=== PATIENT | male | born 1990 | race Two or more races ===

== ENCOUNTER 2020-06-19 09:37 | Outpatient (REF) | payer MEDICAID, SELFPAY | END 2020-06-19 09:38 | disposition home or self-care (01) | LOC: HO.LAB 09:37 | PROVIDERS: Visit Provider Internal Medicine | DX: Z20.828 Contact with and (suspected) exposure to other viral communicable diseases (principal) | CPT/HCPCS: 36415; 87635 ==

== ENCOUNTER 2021-04-07 00:36 | Emergency (ER) | payer MEDICAID, SELFPAY ==
--- NOTE | ~2021-04-07 | XR_ITS ---
EXAMINATION: XR ABDOMEN KUB CLINICAL INDICATION: Abdominal discomfort, questionable constipation COMPARISON: 01/27/2014 TECHNIQUE: AP view of the abdomen. FINDINGS: The bowel gas pattern is nonobstructive. Mild volume of stool is noted. No gross evidence of free air on supine imaging. No suspicious calcifications are seen. Included lung bases are well aerated. No acute osseous findings are seen. XR/XR KUB IMPRESSION: Nonobstructive bowel gas pattern. Mild volume of stool.
[2021-04-07 00:40] VITALS: BP 164/98; PULSE 105; RESP 18; TEMP 36.8; O2SAT 98; BMI 27.8
--- NOTE | 2021-04-07 01:20 | ED_ITS ---
HPI - Abdominal Pain General Chief Complaint: Abdominal Pain Stated Complaint: Abd pain Time Seen by Provider: 04/07/21 00:55 Source: patient Mode of arrival: ambulatory History of Present Illness HPI narrative: 31-year-old male without significant past medical history presents with concerns for abdominal wall pain that he has had approximately 2 weeks without associated fever, chills, nausea, vomiting, diarrhea, urinary pain/burning/frequency. Patient does describe intermittent constipation, but denies that he is currently constipated. In addition, he describes some ?little lumps? that he feels in the soft tissue area of his left abdomen. Related Data Allergies Allergy/AdvReac Type Severity Reaction Status Date / Time No Known Allergies Allergy Unverified 06/05/20 17:51 Review of Systems Review of Systems Pertinent positives and negatives as stated in HPI 10 point review of systems is otherwise negative. Physical Exam Vital Signs: Vital Signs: Last Vital Signs Temp 98.2 F 04/07/21 00:40 Pulse 105 H 04/07/21 00:40 Resp 18 04/07/21 00:40 BP 164/98 H 04/07/21 00:40 Pulse Ox 98 04/07/21 00:40 Body Mass Index 27.8 VITAL SIGNS: Reviewed. GENERAL: Well developed, well nourished, patient is in no acute distress HEAD: Normocephalic/atraumatic EYES: PERRLA, EOMI OROPHARYNX: no oral lesions noted, posterior pharynx clear LUNGS: Normal breath sounds. SpO2<98> CARDIOVASCULAR: Regular rate and rhythm without noted murmurs ABDOMEN: Soft, non-tender, non-distended with bowel sounds, no CVA tenderness, on palpation of the subcutaneous tissue in the left abdomen there are very small lumps palpated consistent with possible lipoma but no evidence of hernia SKIN: Inspection of the skin reveals no rashes, ulcerations, jaundice, pallor, or petechiae. NEUROLOGIC: Alert and oriented x 4. Strength and sensation to light touch were grossly intact x 4. Course Course Course Narrative: 31-year-old male with history and clinical presentation consistent with likely gas or constipation. The small lumps palpated within the subcutaneous tissue is likely lipomas. Review of all investigations negative for acute findings. There remains low clinical suspicion for any intra-abdominal abnormalities and patient was discharged home in stable condition with instructions to follow-up with his primary care provider. MDM - Abdominal Pain Lab Data Labs: Lab Results 04/07/21 Range/Units 01:28 Urine Color YELLOW Urine Appearance CLEAR Urine pH 6.0 (5.0-8.0) Ur Specific [place] 1.025 (1.005-1.025) Urine Protein NEG (NEG-TRACE) MG/DL Urine Glucose (UA) NEG (NEG) MG/DL Urine Ketones NEG (NEG) MG/DL Urine Blood TRACE (NEG) Urine Nitrite NEG (NEG) Ur Leukocyte Esterase NEG (NEG) Urine RBC 0-2 (0) /HPF Urine WBC 0-2 (0-4) /HPF Ur Squamous Epith Cells NONE /LPF Urine Bacteria NONE /LPF Urine Mucus TRACE /LPF Discharge Plan Discharge Clinical Impression: Abdominal discomfort Patient Disposition: Home, Self-Care Instructions: Constipation (ED) Additional Instructions: 1. Recommend [id number] Tylenol/ibuprofen as needed for pain control. 2. Recommend vnmc-sno-[id number] medication for constipation as needed. 3. Please follow-up with your primary care provider next 2-3 days for re- evaluation of your symptoms. Return to the ER for acute worsening of symptoms. Referrals: Physician,None [Primary Care Provider] - 2 days PMF Past Medical History Source: nursing notes reviewed Medical History No known health problems Social History Social History Advance Directives: No Advance Directives Information Provided: No
[2021-04-07 01:32] LABS: Glucose Urine UA NEG (NEG); Leukocyte Esterase Urine NEG (NEG); Nitrite Urine NEG (NEG); Specific Gravity - Urine 1.025 (1.005-1.025); Urine Blood TRACE (NEG); Urine Ketones NEG (NEG); Urine Protein NEG (NEG-TRACE)
[2021-04-07 01:33] LABS: Appearance Urine CLEAR; Color Urine YELLOW
[2021-04-07 01:40] LABS: Mucus Urine TRACE /LPF; RBC Urine 0-2 /HPF (0); WBC Urine 0-2 /HPF (0-4)
== END 2021-04-07 03:18 | disposition home or self-care (01) ==
PROVIDERS: Emergency Provider Student in an Organized Health Care Education/Training Program
DX: R10.9 Unspecified abdominal pain (principal)
CPT/HCPCS: 74018; 81001; 99283

== ENCOUNTER 2021-04-27 11:37 | Outpatient (REF) | payer MEDICAID, SELFPAY ==
--- NOTE | ~2021-04-27 | XR_ITS ---
EXAMINATION: XR LUMBOSACRAL SPINE CLINICAL INFORMATION: Back pain. COMPARISON: None TECHNIQUE: Three views of the lumbosacral spine. FINDINGS: Mild scoliosis convex right apex at L2. The SI joints are grossly patent. There is no listhesis or compression injury. The disc heights and vertebral heights are fairly well preserved. XR/XR lumbar spine 2-3V IMPRESSION: Minimal scoliosis. No listhesis or compression injury. No significant degeneration.
== END 2021-04-27 11:38 | disposition home or self-care (01) ==
LOC: HO.XRAY 11:37
PROVIDERS: PCP Registered Nurse Community Health; Visit Provider Registered Nurse Community Health
DX: M54.5 Low back pain (principal)
CPT/HCPCS: 72100

== ENCOUNTER 2022-04-07 00:49 | Emergency (ER) | payer MEDICAID, SELFPAY ==
[2022-04-07 00:54] VITALS: BP 114/94; PULSE 78; RESP 18; TEMP 36.2; O2SAT 98; BMI 27.1
== END 2022-04-07 02:15 | disposition left against medical advice (07) ==
PROVIDERS: Emergency Provider Emergency Medicine
DX: R11.10 Vomiting, unspecified (principal)
CPT/HCPCS: 99281

== ENCOUNTER 2024-05-29 14:36 | Outpatient (REF) | payer MEDICAID, SELFPAY ==
--- NOTE | ~2024-05-29 | XR_ITS ---
EXAMINATION: XR THORACIC SPINE CLINICAL INFORMATION: pt w chronic lower back and lower thoracic pain over spinal points COMPARISON: None available. TECHNIQUE: 2 views of the thoracic spine were obtained. FINDINGS: There is no fracture or bone destruction seen and the vertebral alignment is normal. There is no disc space narrowing. There is no abnormality of the paraspinal soft tissues. XR/XR thoracic spine 2V IMPRESSION: Unremarkable examination. Electronically signed by: Mynor Helm MD 05/29/2024 07:56 PM EDT RP
--- NOTE | ~2024-05-29 | XR_ITS ---
EXAMINATION: XR LUMBOSACRAL SPINE CLINICAL INFORMATION: pt w chronic lower back and lower thoracic pain over spinal points COMPARISON: Lumbar spine April 27, 2021 TECHNIQUE: Three views of the lumbosacral spine. FINDINGS: The vertebral bodies and posterior elements are normal. The disc spaces are preserved and the vertebral alignment is normal. The paraspinal soft tissues are normal. XR/XR lumbar spine 2-3V IMPRESSION: Unremarkable examination. Electronically signed by: Mynor Helm MD 05/29/2024 07:57 PM EDT RP
--- NOTE | ~2024-05-29 | XR_ITS ---
EXAMINATION: XR PELVIS CLINICAL INFORMATION: CHRONIC LOW BACK PAINOVER SPINAL POINTS,PAIN IN HIS LEFT PELVIC BONE IN ILLIACUS CREST. COMPARISON: None available. TECHNIQUE: AP view of the pelvis. FINDINGS: No fracture. Hip joint spaces are maintained. Alignment is anatomic. Sacroiliac joints and pubic symphysis are normal. No abnormal soft tissue calcifications. XR/XR pelvis 1-2V IMPRESSION: Normal pelvis. Electronically signed by: Mynor Helm MD 05/29/2024 07:58 PM EDT
== END 2024-05-29 14:37 | disposition home or self-care (01) ==
LOC: HO.HHCX 14:36
PROVIDERS: Visit Provider Student in an Organized Health Care Education/Training Program
DX: M54.50 Low back pain, unspecified (principal); G89.29 Other chronic pain
CPT/HCPCS: 72070; 72100; 72170

== ENCOUNTER 2024-06-05 12:40 | Outpatient (REF) | payer MEDICAID, SELFPAY ==
--- NOTE | ~2024-06-05 | XR_ITS ---
EXAMINATION: XR PELVIS CLINICAL INFORMATION: Pelvic pain COMPARISON: X-ray of the pelvis May 200012/27 TECHNIQUE: AP view of the pelvis. FINDINGS: No fracture. Hip joint spaces are maintained. Alignment is anatomic. Sacroiliac joints and pubic symphysis are normal. No abnormal soft tissue calcifications. XR/XR pelvis 1-2V IMPRESSION: Normal pelvis. Electronically signed by: Valentín Joseph MD 06/28/2024 07:21 AM EDT
--- NOTE | ~2024-06-05 | US_ITS ---
EXAMINATION: US ABDOMEN LIMITED CLINICAL INFORMATION: Chronic superficial mass sensation over left lower quadrant in abdominal wall causing pain. COMPARISON: X-ray KUB 04/07/2021. TECHNIQUE: Real-time imaging of palpable left lateral abdominal wall lumps. FINDINGS: Corresponding with the palpable lumps described by the patient in the lateral left abdominal wall, there are 4 subcutaneous hyperechoic, round densities. These show respective dimensions of 1.4 x 0.9 x 1.2 cm, 1.1 x 0.8 x 1.1 cm, 0.6 x 0.6 x 0.8 cm and 0.6 x 0.6 x 0.8 cm. None shows significant associated color Doppler flow or change in though sound transmission. No fluid collection is seen. There is no lymphadenopathy. No foreign body is seen. US/US abdomen limited IMPRESSION: Corresponding with the palpable lumps described by the patient in the lateral left abdominal wall, there are 4 hyperechoic subcutaneous masses. The possibility of lipomas is raised; the exact etiologies are indeterminate. If of continued clinical concern, these can be further evaluated with MRI. Electronically signed by: Rodolfo Flood MD 06/07/2024 03:23 PM EDT
== END 2024-06-05 12:41 | disposition home or self-care (01) ==
LOC: HO.US 12:40
PROVIDERS: PCP Student in an Organized Health Care Education/Training Program; Visit Provider Student in an Organized Health Care Education/Training Program
DX: R10.2 Pelvic and perineal pain (principal); R22.2 Localized swelling, mass and lump, trunk; M54.50 Low back pain, unspecified; G89.29 Other chronic pain
CPT/HCPCS: 72170; 76705

== ENCOUNTER → 2024-12-17 08:41 | Outpatient (BNV) | payer MEDICAID, SELFPAY | PROVIDERS: Visit Provider Radiology Diagnostic Radiology | DX: D18.00 Hemangioma unspecified site (principal) | CPT/HCPCS: 74183 ==

== ENCOUNTER 2024-12-17 08:42 | Outpatient (REF) | payer MEDICAID, SELFPAY ==
--- NOTE | ~2024-12-17 | MR_ITS ---
EXAMINATION: MRI Abdomen without and with contrast HISTORY: painful subcutaneous masses located in left lateral portion of abdomen COMPARISON: Correlation is made with a limited abdominal ultrasound dated 06/05/2024. TECHNIQUE: Axial in and out of phase T1-weighted gradient echo, axial diffusion weighted, and axial and coronal HASTE T2 with fat saturation images were obtained through the abdomen. Subsequently, fat suppressed axial and coronal T1-weighted images were obtained after the intravenous administration of 10 mL Gadavist. FINDINGS: There is a 9 mm mildly T2 hyperintense nodule within the subcutaneous fat of the left anterior abdominal wall (series 7, image 50) seen on the fat-suppressed T2-weighted images. This is not seen on any other precontrast sequence, including the nonfat suppressed T2-weighted sequence. Additional tiny similar appearing nodules are noted in the right anterior abdominal wall (series 7, images 41 and 50). After the administration of intravenous gadolinium, there is faint enhancement. Findings are suggestive of foci of fat necrosis. There is no significant loss of signal intensity within the liver on opposed phase images to suggest steatosis. There is a 1.2 cm T2 hyperintense lesion in the right lobe and a smaller similar-appearing subcapsular lesion in the right lobe. These demonstrate peripheral, nodular enhancement and likely represent hemangiomas. There is no intra or extrahepatic biliary ductal dilatation. The hepatic and portal veins are patent. The gallbladder, spleen, pancreas, adrenals, and left kidney are unremarkable. There is a 1.2 cm cyst at the upper pole of the right kidney. No retroperitoneal lymphadenopathy or ascites is identified in the upper abdomen. The visualized bones demonstrate normal marrow signal intensity. MR/MR abdomen wo/w con IMPRESSION: 1. Tiny nodules in the subcutaneous fat of the anterior abdominal wall bilaterally as described, suggestive of foci of fat necrosis. These are amenable to ultrasound-guided biopsy if desired. 2. Small hepatic hemangiomas. Electronically signed by: Maury Smith MD 12/17/2024 10:43 AM EDT
[2024-12-17] MEDS: gadobutroL 10 ML VIAL IVPUSH (09:44)
== END 2024-12-17 08:43 | disposition home or self-care (01) ==
LOC: HO.MRI 08:42
PROVIDERS: Visit Provider Nurse Practitioner
DX: R22.9 Localized swelling, mass and lump, unspecified (principal)
CPT/HCPCS: 74183; A9585

== ENCOUNTER 2024-12-19 09:14 | Outpatient (REF) | payer MEDICAID, SELFPAY ==
--- OUTSIDE RECORDS SUMMARY | 2024-12-19 10:12 | XMS_ITS | Encounter Summary ---
Author Organization [employer] Address [address] [place] [address] Care Team Providers Care Mri Special Procedures Technologist Name Role Phone Nadeen Alexa VIRGEN Primary Care Provider [phone] Encounter Details Date Type Department Care Team ([facility] st Contact Info) Description 12/18/2024 9:00 AM EDT Nurse Only [facility] [address] [place] [address] Lamar Tripathi LPN Encounter for immunization (Primary Dx) Social History Tobacco Use Types Packs/Day Years Used Date Smoking Tobacco: Never Passive Smoke Exposure: Never Smokeless Tobacco: Never Alcohol Answer Date Recorded How often do you have a drink containing alcohol ? 0 12/03/2024 How many drinks containing a lcohol do you have on a typical day when you are drinking? 0 12/03/2024 How often do you have six or more drinks on one occasion? 0 12/03/2024 Depression Answer Date Recorded Patient Health Questionnaire-9 Score 0 12/03/2024 Patient Health Questionnaire-9 Score 0 12/03/2024 Last PHQ-9: Questionnaire Data Not on file 0 12/03/2024 Housing Stability Answer Date Recorded What is your housing situation today? I have travis langley 12/03/[address] you li ve. Do you have problems with any of the following? None of the above 12/03/2024 Food Insecurity Answer Date Recorded Within the past 12 months, y ou worried that your food would run out before you got money to buy more: Never True 12/03/2024 Within the past 12 months,th e food you bought just didn't last and you didn't have enough money to get more: Never True Transportation Answer Date Recorded In the past 12 months, has l ack of transportation kept you from medical appts, meetings, work or from getting things needed for daily living? No 12/03/2024 Utilities Answer Date Recorded In the past 12 months, has t he electric, gas, oil or water company threatened to shut off services in your home? No 12/03/2024 Depression Answer Date Recorded Patient Health Questionnaire-2 Score 0 12/03/2024 Internet Access Answer Date Recorded Internet Access Q1 Yes 12/03/2024 Internet Access Q2 Not on file 12/03/2024 Sex and Gender Information Value Date Recorded Sex Assigned at Male 07/19/2022 10:20 AM EDT Legal Sex Male 10:20 AM EDT Gender Identity Male 07/19/2022 10:20 AM EDT Sexual Orientation Straight 07/19/2022 10 :20 AM EDT documented as of this encounter Progress Notes * Lamar Tripathi LPN - 12/18/2024 9:00 AM EDT Subjective Patient ID: Alexx Villalta is a 34 y.o. male who presents here to receive Fluarix Trivalent, Preservative-Free, [id number] seasonal Influenza vaccine. Pt's Influenza Intake form, and guardianreporting, indicated no contraindication to vaccination. Pt educated as to potential side effects of vaccine including fever, muscle aches & headache. Pt tolerated injection well and monitored for 15 minutes post injection. documented in this encounter Plan of Treatment Upcoming Encounters Date Type Department Care Team (Late st Contact Info) Description 01/15/2025 9:00 AM EDT Immunization [facility] [address] [place] [address] documented as of this encounter Visit Diagnoses Diagnosis Encounter for immunization- Primary documented in this encounter Additional Health Concerns Assessment Noted Time PHQ-9 Depression Total Score: 0 12/04/19 25 10:57 AM EDT documented as of this encounter Care Teams Mri Special Procedures Technologist Relationship Specialty Start Date End Date Alexa Senior NP [address] [place] [address] PCP - General Family Medicine 10/26/23 documented as of this encounter
--- OUTSIDE RECORDS SUMMARY | 2024-12-19 10:12 | XMS_ITS | Clinical Summary ---
Author Organization [employer] Address [address] [place] [address] [address] [place] [address] Care Team Providers Care Boat Motor Mechanic Name Role Phone Nadeen Alexa VIRGEN Primary Care Provider [phone] Allergies No known active allergies Medications No known medications Active Problems Problem Noted Date Diagnosed Date Encounter to establish care 12/03/2024 Assessment & Plan (12/03/2024 12:34 PM EDT): -personal medical, surgical, and medication histories reviewed along with family hx -routine health maintenance discussed -age appropriate screening and immunizations up to date (STI screening) -low cardiovascular risk -mental health screening negative -healthy social behaviors encouraged -anticipatory guidance reviewed: diet, exercise Overweight (BMI 25.0-29.9) 12/03/2024 Assessment & Plan (12/03/2024 12:34 PM EDT): Dietary Recommendations: Fruits, vegetables, whole grains, protein foods, and fat-free or low-fat dairy products are healthy choices. Eat different types of protein foods in your diet. This can include seafood, lean meats, poultry, beans, peas, lentils, nuts, seeds, soy products, and eggs. Limit foods and beverages higher in added sugars, saturated fat, and sodium. Exercise Recommendations: At least 150 minutes of moderate-intensity physical activity per week, or an equivalent combination of moderate- and vigorous-intensity activity -metabolic labs ordered. Will call with results Subcutaneous mass 05/30/2024 Assessment & Plan (12/03/2024 12:31 PM EDT): -US completed 05/2024 suggests lipoma with recommendation of MRI based on clinical exam -patient opt to have MRI as the sites continue to be bothersome -order placed Assessment & Plan (05/30/2024 6:55 PM EDT): Palpated soft nodularities most bothersome in LLQ abd-superficial , other in back ,arms Possible fibromas ,lipomas -Start w Abd wall US -will call pt w results -will consider surgery referral but will wait for image result Elevated blood pressure reading 05/30/2024 Assessment & Plan (05/30/2024 6:56 PM EDT): BP slight elevated -advised low salt diet -will need to monitor BP w PCP Chronic lower back pain 05/30/2024 Assessment & Plan (05/30/2024 6:56 PM EDT): Normal neuro exam in Les, there is pain in back over vertebras -lower thoracic,lumbar pelvic XR referred today --- if normal to refer to PT ,will call pt w results -tylenol Gastroesophageal reflux disease 06/13/2018 Assessment & Plan (12/03/2024 12:19 PM EDT): -stable; patient reports improvement with dietary changes Encounters Date Type Department Care Team Description 12/18/2024 9:00 AM EDT Nurse Only [facility] [address] [place] [id number] Lamar Tripathi LPN Encounter for immunization (Primary Dx) 12/18/2024 Travel 12/03/2024 10:30 AM EDT Office Visit [facility] [address] [place] [address] Alexa Senior NP Encounter to establish care (Primary Dx); Encounter for immunization; Overweight (BMI 25.0-29.9); Dietary counseling; Exercise counseling; Encounter for health-related screening; Subcutaneous mass; Gastroesophageal reflux disease without esophagitis 12/03/2024 Travel 11/30/2024 Population Health Risk Score [facility] (C[facility]) Department [address] [place] [id number] Provider, Population Health Generic 11/28/2024 Telephone [facility] [address] [place] [address] Patricia Weeks MA chartprep 09/27/2024 Telephone [facility] [address] [place] [address] Patricia Weeks MA Nov recall from Last 3 Months Immunizations Name Administration Dates Next Due Influenza injectable quadriv alent IIV4 with preservative 06/13/2018 Influenza, seasonal, injectable, preservative fr ee 12/18/2024 Tdap 12/03/2024 Family History Medical History Relation Name Comments Diabetes Father Alcohol abuse Maternal Grandfather Hypertension Mother Relation Name Status Comments Father Alive Maternal Grandfather Mother Alive Paternal Grandfather Paternal Grandmother Social History Tobacco Use Types Packs/Day Years Used Date Smoking Tobacco: Never Passive Smoke Exposure: Never Smokeless Tobacco: Never Tobacco Cessation:Counseling Given: Not Answered Alcohol Answer Date Recorded How often do [...] is your housing situation today? I have travisvirgie langley 12/03/[address] you [...] Orientation Straight 07/19/2022 10 :20 AM EDT Last Filed Vital Signs Vital Sign Reading Time Taken Comments Blood Pressure 135/85 12/03/2024 10:55 AM EDT Pulse 72 12/03/2024 10:55 AM EDT Temperature 36.9 ??C (98.5 ??F) 12/03/2024 10:55 AM E DT Respiratory Rate 20 12/03/2024 10:55 AM EDT Oxygen Saturation 98% 12/03/2024 10:55 AM EDT Inhaled Oxygen Concentration - - Weight 103 kg (227 lb) 12/03/2024 10:55 AM EDT Height 185.4 cm (6' 1 ) 12/03/2024 10:55 AM EDT Body Mass Index 29.95 12/03/2024 10:55 AM EDT Plan of Treatment Upcoming Encounters Date Type Department Care Team (Late st Contact Info) Description 01/15/2025 9:00 AM EDT Immunization [facility] [address] [place] [id number] Health Maintenance Due Date Last Done Comments Family Planning (PISQ) 2005 Hepatitis C Screening 01/05/2008 Hepatitis B Vaccines (1 of 3 - 19+ 3-dose series) 2009 COVID-19 Vaccine (2023-2 5 season) 2024 05/04/2021, 04/07/2021 Alcohol/Substance Use Screening 12/03/2025 12/03/2024 Depression Screening 12/03/2025 12/03/2024, 12/03/2024 SDOH Screening 12/03/2025 12/03/2024 Tobacco Screening 12/03/2025 12/03/2024 DTaP/Tdap/Td Vaccines (2 - T d or Tdap) 12/03/2034 12/03/2024 Zoster Vaccines (1 of 2) 01/05/2040 RSV Patients and Patients Aged 60 years or older (1 - 1-dose 75+ series) 2065 HIV Screening Completed 06/08/2021 Influenza Vaccine Completed 12/18/2024, 06/13/2018 HIB Vaccines Aged Out No longer eligi ble based on patient's age to complete this topic HPV Vaccines Aged Out No longer eligi ble based on patient's age to complete this topic Hepatitis A Vaccines Aged Out No long er eligible based on patient's age to complete this topic IPV Vaccines Aged Out No longer eligi ble based on patient's age to complete this topic Meningococcal Vaccine Aged Out No jennifer grisel eligible based on patient's age to complete this topic Pneumococcal Vaccine: Pediatrics (0 to 5 Years) and At-Risk Patients (6 to 49) Years) Aged Out No longer eligible b ased on patient's age to complete this topic RSV under 20 months Aged Out No longe r eligible based on patient's age to complete this topic Rotavirus Vaccines Aged Out No longer eligible based on patient's age to complete this topic Procedures Procedure Name Priority Date/Time Associated Diagnosis Comments MR ABDOMEN W AND WO CONTRAST Routine 12/17/2024 8:41 AM EDT Subcutaneous mass HIV 1/2 ANTIGEN/ANTIBODY, FOURTH GENERATION W/RFL Routine 06/08/2021 11:00 AM EDT from Last 3 Months or Most Recently Relevant to Health Maintenance Results * MR Abdomen w/ and w/o Contrast (12/17/2024 8:41 AM EDT) Anatomical Region Laterality Modality Abdomen Magnetic Resonan ce 12/17/2024 8:41 AM EDT Narrative 12/17/2024 10:46 AM EDT ? [facility] ?[address] ?[place] [address] ? Magnetic Resonance Report ? Signed ? Patient: Floran Villalta,Arun ?MR#: ?? [id number] ? : 1990 ?Acct:[id number] ? Age/Sex: 34 / M ?ADM Date: 03/31/25 ? Loc: HO.MRI ? Attending Dr: Alexa Senior ? Ordering Physician: Alexa Senior ?? Date of Service: 12/17/24 ?? Procedure(s): MR abdomen wo/w con ?? Accession Number(s): [id number] ? cc: Alexa Senior; Physician,Unknown ? EXAMINATION: ??MRI Abdomen without and with contrast ? HISTORY: painful subcutaneous masses located in left lateral portion of ?? abdomen ? COMPARISON: ??Correlation is made with a limited abdominal ultrasound ?? dated 06/05/2024. ? TECHNIQUE: Axial in and out of phase T1-weighted gradient echo, axial ?? diffusion weighted, and axial and coronal HASTE T2 with fat saturation ?? images were obtained through the abdomen. ?? Subsequently, fat ?? suppressed axial and coronal T1-weighted images were obtained after the ?? intravenous administration of 10 mL Gadavist. ? FINDINGS: ??There is a 9 mm mildly T2 hyperintense nodule within the ?? subcutaneous fat of the left anterior abdominal wall (series 7, image ?? 50) seen on the fat-suppressed T2-weighted images. This is not seen on ?? any other precontrast sequence, including the nonfat suppressed ?? T2-weighted sequence. Additional tiny similar appearing nodules are ?? noted in the right anterior abdominal wall (series 7, images 41 and ?? 50). After the administration of intravenous gadolinium, there is faint ?? enhancement. Findings are suggestive of foci of fat necrosis. ? There is no significant loss of signal intensity within the liver on ?? opposed phase images to suggest steatosis. There is a 1.2 cm T2 ?? hyperintense lesion in the right lobe and a smaller similar-appearing ?? subcapsular lesion in the right lobe. These demonstrate peripheral, ?? nodular enhancement and likely represent hemangiomas. There is no intra ?? or extrahepatic biliary ductal dilatation. The hepatic and portal veins ?? are patent. ? The gallbladder, spleen, pancreas, adrenals, and left kidney are ?? unremarkable. There is a 1.2 cm cyst at the upper pole of the right ?? kidney. No retroperitoneal lymphadenopathy or ascites is identified in ?? the upper abdomen. The visualized bones demonstrate normal marrow ?? signal intensity. ? MR/MR abdomen wo/w con ?? IMPRESSION: ? 1. Tiny nodules in the subcutaneous fat of the anterior abdominal wall ?? bilaterally as described, suggestive of foci of fat necrosis. These are ?? amenable to ultrasound-guided biopsy if desired. ? 2. Small hepatic hemangiomas. ? Electronically signed by: ??Maury Smith MD ??12/17/2024 10:43 AM EDT ? Dictated By: ?Maury Smith MD ? Signed By: ?<Electronically signed by Maury Smith MD in OV> ?12/17/24 1043 ? DD/ 0841 ? TD/TT: 12/17/24 0945 ? [employer] Ground Crew Supervisor: ? Procedure Note Donmatthiaster, Image - 12/17/2024 [place] [id number] Magnetic Resonance Report Signed Patient: Alexx Lacy MMR#: [id number] : 1990Acct:[id number] Age/Sex: 34 / MADM Date: 12/17/24 Loc: HO.MRI Attending Dr: Alexa Senior Ordering Physician: Alexa Senior Date of Service: 12/17/24 Procedure(s): MR abdomen wo/w con Accession Number(s): [id number] cc: Alexa Senior; Physician,Unknown EXAMINATION: MRI Abdomen without and with contrast HISTORY: painful subcutaneous masses located in left lateral portion of abdomen COMPARISON: Correlation is made with a limited abdominal ultrasound dated 06/05/2024. TECHNIQUE: Axial in and out of phase T1-weighted gradient echo, axial diffusion weighted, and axial and coronal HASTE T2 with fat saturation images were obtained through the abdomen. Subsequently, fat suppressed axial and coronal T1-weighted images were obtained after the intravenous administration of 10 mL Gadavist. FINDINGS: There is a 9 mm mildly T2 hyperintense nodule within the subcutaneous fat of the left anterior abdominal wall (series 7, image 50) seen on the fat-suppressed T2-weighted images. This is not seen on any other precontrast sequence, including the nonfat suppressed T2-weighted sequence. Additional tiny similar appearing nodules are noted in the right anterior abdominal wall (series 7, images 41 and 50). After the administration of intravenous gadolinium, there is faint enhancement. Findings are suggestive of foci of fat necrosis. There is no significant loss of signal intensity within the liver on opposed phase images to suggest steatosis. There is a 1.2 cm T2 hyperintense lesion in the right lobe and a smaller similar-appearing subcapsular lesion in the right lobe. These demonstrate peripheral, nodular enhancement and likely represent hemangiomas. There is no intra or extrahepatic biliary ductal dilatation. The hepatic and portal veins are patent. The gallbladder, spleen, pancreas, adrenals, and left kidney are unremarkable. There is a 1.2 cm cyst at the upper pole of the right kidney. No retroperitoneal lymphadenopathy or ascites is identified in the upper abdomen. The visualized bones demonstrate normal marrow signal intensity. MR/MR abdomen wo/w con IMPRESSION: 1. Tiny nodules in the subcutaneous fat of the anterior abdominal wall bilaterally as described, suggestive of foci of fat necrosis. These are amenable to ultrasound-guided biopsy if desired. 2. Small hepatic hemangiomas. Electronically signed by: Maury Smith MD 12/17/2024 10:43 AM EDT Dictated By: Maury Smith MD Signed By: <Electronically signed by Maury Smith MD in OV> 12/17/24 1043 DD/ 0841 TD/TT: 12/17/24 0945 [employer] Cargo Ground Crew Supervisor: [facility] PRODUCT COORDINATOR [facility] [place] MRI PROCEDURES Final Result * HIV 1/2 ANTIGEN/ANTIBODY,FOURTH GENERATION W/RFL (06/08/2021 11:00 AM EDT) HIV-1/2 ANTIGEN AND ANTIBODIES, 4TH GENERATION W/ REFLEX NON-REACT [facility]ACT [facility] Comment: HIV-1 antigen and HIV-1/HIV-2 antibodies were not detected. There is no laboratory evidence of HIV infection. ?? PLEASE NOTE: This information has been disclosed to you from records whose confidentiality may be protected by state law. ??If your state requires such protection, then the state law prohibits you from making any further disclosure of the information without the specific written consent of the person to whom it pertains, or as otherwise permitted by law. A general authorization for the release of medical or other information is NOT sufficient for this purpose. ? For additional information please refer to [email or web address] T[employer]/faq/FWK238 (This link is being provided for informational/ educational purposes only.) ? The performance of this assay has not been clinically validated in patients less than 2 years old. ?? 06/08/2021 11:0 0 AM EDT us Dee Lyons NP LAB BLOOD ORDERABLES Final Res ult [facility] [address] from Last 3 Months or Most Recently Relevant to Health Maintenance Insurance N [facility] C3 Care Teams Boat Motor Mechanic Relationship Specialty Start Date End Date Alexa Senior NP [address] [place] [phone] PCP - General Family Medicine 10/26/23
--- OUTSIDE RECORDS SUMMARY | 2024-12-19 10:12 | XMS_ITS | Encounter Summary ---
Author Organization [employer] Address [address] [facility] [address] [place] [address] Care Team Providers Care Residential Leasing Agent Name Role Phone Nadeen Alexa VIRGEN Primary Care Provider [phone] Encounter Details Date Type Department Care Team (Latest Contact Info) Description 12/18/2024 Travel Social History Tobacco Use Types Packs/Day Years [...] AM EDT documented as of this encounter Plan of Treatment Upcoming Encounters Date Type Department Care Team (Late st Contact Info) Description 01/15/2025 9:00 AM EDT Immunization [facility] [address] [place] [address] documented as of this encounter Visit Diagnoses Not on filedocumented in this encounter Additional Health Concerns Assessment Noted Time PHQ-9 Depression Total Score: 0 12/04/19 25 10:57 AM EDT documented as of this encounter Care Teams Residential Leasing Agent Relationship Specialty Start Date End Date Alexa Senior NP [address] [place] [address] PCP - General Family Medicine 10/26/23 documented as of this encounter
[2024-12-19 11:45] LABS: Estimated Average Glucose 114 mg/dL; Hemoglobin A1C 150.0802 umol/L; Hemoglobin A1c % 5.6 % (<6.0); Total Hemoglobin (HGBA1C) 3928.6741 umol/L
[2024-12-19 11:50] LABS: Cholesterol 123 mg/dL (<200); HDL Cholesterol 32 mg/dL (>40); LDL Cholesterol Calculated 73 mg/dL (<100); Triglycerides 92 mg/dL (<150)
[2024-12-19 12:13] LABS: HBS Num1 5.57 mIU/mL (0-7.99); HBc Num1 0.12 S/CO (0.00-0.79); Hepatitis B Core Antibody Nonreactive (Nonreactive); Hepatitis B Surface Antigen Negative (Negative); ~Hepatitis B Surface Antibody NONREACTIVE (Nonreactive); ~Hepatitis C Antibody Nonreactive (Nonreactive)
== END 2024-12-19 09:15 | disposition home or self-care (01) ==
LOC: HO.HHCL 09:14
PROVIDERS: Visit Provider Nurse Practitioner
DX: E66.3 Overweight (principal); Z13.9 Encounter for screening, unspecified
CPT/HCPCS: 36415; 80061; 83036; 86704; 86706; 86803; 87340

== ENCOUNTER 2025-01-28 11:35 | Outpatient (AMB) | payer MEDICAID, SELFPAY ==
--- NOTE | 2025-01-28 11:34 | MHC.OFFVIS ---
Vital Signs 01/28/25 11:40 Height 6 ft 2 in Weight 224 lb BMI 28.8 BP 154/75 H Blood Pressure Location Rt brachial Position Sitting Pulse 74 Intake Visit Reasons: Subcutaneous mass Intake Note: Patient referred by pcp Alexa Senior PRESCHOOL ASSISTANT for mass on Lt lat abdomen. Present for many years. Patient c/o: bothersome. Tender to touch. Reports personal and family hx of lipoma. Reports no personal hx of skin CA. World History Teacher Required: No Accompanied by: Self / Same As Patient Allergies No Known Allergies Allergy (Unverified 01/28/25 11:38) Medication List - Last Reconciled 01/28/25 by Maximiliano Slater MD No Known Home Meds HPI HPI Subcutaneous mass: Details: 35-year-old male referred for a subcutaneous mass. He says that he has a felt this on his abdominal wall for almost 20 years now. He this has not increased in size. However, he says that this has been starting to bother him so wants this removed. He denies any changes. 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 [employer] Gender identity: Male Review of Systems Const Denies chills and Denies fever(s) Card Denies chest pain, Denies dyspnea and Denies dyspnea on exertion Resp Denies cough, Denies dyspnea and Denies dyspnea on exertion GI Denies hematochezia and Denies change in bowel habits Denies hematuria and Denies difficulty urinating Musc Denies back pain and Denies limited range of motion Neuro Denies focal weakness and Denies convulsions Psych Denies depression and Denies mood swings Physical Exam Vital Signs: Last Vital Signs Pulse 74 01/28/25 11:40 BP 154/75 H 01/28/25 11:40 BMI result Body Mass Index 28.8 Const General: comfortable and no acute distress Orientation/consciousness: patient oriented x3 Neck Neck: Yes no lymphadenopathy Resp Auscultation: clear to auscultation bilaterally Cardio Rhythm: regular rhythm GI Other: Lipomatous mass on the abdominal wall to the left of the midline near the umbilicus, about 1.5 cm in diameter Palpation (GI): Soft to palpation, nontender and no guarding Neuro General: patient oriented x3 Assessment & Plan Assessment & Plan (1) Lipoma of abdominal wall: Code(s): D17.1 - Benign lipomatous neoplasm of skin and subcutaneous tissue of trunk Category: Medical Plan: He wants this removed. I explained the technique of excision under local anesthesia. I reviewed the risks including but not limited to bleeding infections, as well as the benefits and alternatives. He has given consent. This will be done in the office on his next visit. Coding Level of Care Code New Pt Level 3 (41337) Diagnoses Lipoma of abdominal wall D17.1
[2025-01-28 11:40] VITALS: BP 154/75; PULSE 74; BMI 28.8
--- OUTSIDE RECORDS SUMMARY | 2025-01-28 12:24 | XMS_ITS | Encounter Summary ---
Author Organization [employer] Address [address] [place] [address] [address] [place] [address] Care Team Providers Care Adjunct Business Instructor Name Role Phone Alexa Senior NP Primary Care Provider [phone] Reason for Referral * Consultation (Routine) - Authorized Specialty Diagnoses / Procedures Referred By Contantonio t Referred To Contact General Surgery Diagnoses Subcutaneous mass Alexa Senior NP [address] [place] [address] Phone: tel: fax: Dakotah Reynolds MD [address] [place] [phone] Phone: tel: fax: Referral ID Status Reason Start Date Expiration Date Visits Requested Visits Authorized [id number] Authorized Specialty Services Required 01/03/2025 01/03/2026 12 12 Encounter Details Date Type Department Care Team (Late st Contact Info) Description 01/03/2025 Orders Only [facility] [address] [place] [address] Alexa Senior NP [address] [place] [address] Subcutaneous mass (Primary Dx) Social History Tobacco Use Types [...] as of this encounter Plan of Treatment Scheduled Referrals Name Type Priority Associated Diagnoses Orde r Schedule Referral to General Surgery Outpatient Referral Routine Subcutaneous mass Expected: 01/03/2025 (Approximate), Expires: 01/03/2026 documented as of this encounter Visit Diagnoses Diagnosis Subcutaneous mass- Primary documented in this encounter Additional Health Concerns Assessment Noted Time PHQ-9 Depression Total Score: 0 12/04/19 25 10:57 AM EDT documented as of this encounter Care Teams Adjunct Business Instructor Relationship Specialty Start Date End Date Alexa Senior NP [address] [place] [address] PCP - General Family Medicine 10/26/23 documented as of this encounter
--- OUTSIDE RECORDS SUMMARY | 2025-01-28 12:24 | XMS_ITS | Clinical Summary ---
Author Organization [employer] Address [address] [place] [address] [address] [place] [address] Care Team Providers Care Knife Cutter Name Role Phone Nadeen Alexa VIRGEN Primary Care Provider [phone] Allergies No known active allergies Medications No [...] Encounters Date Type Department Care Team Description 01/03/2025 Orders Only [address] [address] Alexa Senior NP Subcutaneous mass (Primary Dx) 12/25/[address] [address] Alexa Senior NP Results 12/18/2024 9:00 AM EDT Nurse Only [address] [phone] Lamar Tripathi LPN Encounter for immunization (Primary Dx) 12/18/2024 Travel 12/03/2024 10:30 AM EDT Office Visit [address] [address] Alexa Senior NP Encounter to establish care (Primary Dx); Encounter for immunization; Overweight (BMI 25.0-29.9); Dietary counseling; Exercise counseling; Encounter for health-related screening; Subcutaneous mass; Gastroesophageal reflux disease without esophagitis 12/03/2024 Travel 11/30/2024 Population Health Risk Score [facility] () Department [address] [place] [phone] Provider, Population Health Generic 11/28/2024 Telephone [facility] [address] [place] [address] Patricia Weeks MA chartprep from Last 3 Months Immunizations Name Administration [...] 12/03/2024 10:55 AM EDT Plan of Treatment Health Maintenance Due Date Last Done Comments Family Planning (PISQ) 2005 Hepatitis B Vaccines (1 of 3 - 19+ 3-dose series) 2009 COVID-19 Vaccine (2023-2 5 season) 2024 05/04/2021, 04/07/2021 Alcohol/Substance Use Screening 12/03/2025 12/03/2024 Depression Screening 12/03/2025 12/03/2024, 12/03/2024 SDOH Screening 12/03/2025 12/03/2024 Tobacco Screening 12/03/2025 12/03/2024 Lipid Panel 12/19/2029 12/19/2024, 06/08/2021 DTaP/Tdap/Td Vaccines (2 - T d or Tdap) 12/03/2034 12/03/2024 Zoster Vaccines (1 of 2) 01/05/2040 RSV Patients and Patients Aged 60 years or older (1 - 1-dose 75+ series) 2065 HIV Screening Completed 06/08/2021 Influenza Vaccine Completed 12/18/2024, 06/13/2018 Hepatitis C Screening Completed 12/19/2024 HIB Vaccines Aged Out No longer eligi [...] Procedure Name Priority Date/Time Associated Diagnosis Comments HEPATITIS B CORE AB TOTAL Routine 12/19/2024 9:16 AM EDT Encounter for health-related screening HEPATITIS B SURFACE ANTIBODY, QUALITATIVE Routine 12/19/2024 9:16 AM EDT Encounter for health-related screening HEPATITIS B SURFACE ANTIGEN, EIA Routine 12/19/2024 9:16 AM EDT Encounter for health-related screening HEPATITIS C AB W/REFL TO HCV RNA, QN, PCR Routine 12/19/2024 9:16 AM EDT Encounter for health-related screening HEMOGLOBIN A1C Routine 12/19/2024 9:16 AM EDT Overweight (BMI 25.0-29.9) LIPID PANEL, STANDARD Routine 12/19/2024 9:16 AM EDT Overweight (BMI 25.0-29.9) MR ABDOMEN W AND WO CONTRAST Routine 12/17/2024 8:41 AM EDT Subcutaneous mass HIV 1/2 ANTIGEN/ANTIBODY, FOURTH GENERATION W/RFL Routine 06/08/2021 11:00 AM EDT from Last 3 Months or Most Recently Relevant to Health Maintenance Results * Hepatitis C Antibody with Reflex to HCV, RNA, Quantitative, Real-Time PCR (12/19/2024 9:16 AM EDT) Pathologist [facility] Hepatitis C Antibody Nonreactive Nonreactive [facility] Comment:Antibodies to HCV no t detected; does not exclude early acuteHCV infection. Blood Venous blood specimen / Unknown 12/19/2024 9:16 AM EDT 12/19/2024 11:25 AM EDT [facility] LAB BLOOD ORDERABLES Final Resu lt Performing Organization Address City/[facility]/ZIP Co de Phone Number [facility] [address] [place] [phone] * Hepatitis B surface antigen, EIA (12/19/2024 9:16 AM EDT) Pathologist [facility] Hepatitis B Surface Ag Negative Negative [facility] Blood Venous blood specimen / Unknown 12/19/2024 9:16 AM EDT 12/19/2024 11:25 AM EDT [facility] LAB BLOOD ORDERABLES Final Resu lt Performing Organization Address City/[facility]/ZIP Co de Phone Number [facility] [address] [place] [phone] * Hepatitis B Core Antibody, Total (12/19/2024 9:16 AM EDT) Pathologist [facility] Hepatitis B Core Antibody Nonreactive Nonreactive [facility] Blood Venous blood specimen / Unknown 12/19/2024 9:16 AM EDT 12/19/2024 11:25 AM EDT Alexa Appram TIN WHIZ MACHINE OPERATOR LAB BLOOD ORDERABLES Final Resu lt Performing Organization Address [facility] Co de Phone Number [facility] [address] [place] [phone] * Hepatitis B Surface Antibody, Qualitative (12/19/2024 9:16 AM EDT) ~Hepatitis B Surface Antibody NONREACTIVE Nonreactive [facility] Comment:Nonreactive: < 8.00 mIU/mL Blood Venous blood specimen / Unknown 12/19/2024 9:16 AM EDT 12/19/2024 11:25 AM EDT Alexa Ramon TIN WHIZ MACHINE OPERATOR LAB BLOOD ORDERABLES Final Resu lt Performing Organization Address [facility] de Phone Number [facility] [address] [place] [phone] * Hemoglobin A1c (12/19/2024 9:16 AM EDT) Hemoglobin A1c 5.6 <6.0 % [facility] Comment:Hemoglobin A1C Refer ence Range Adults: 4.8 - 6.0 % Non diabetic: < 6.0 % Goal: < 7.0 %Additional Action Suggested: > 8.0 %Note: Hemoglobin A1c results are invalid for patients with abnormal amounts of HbF. Blood transfusions may impact the HbA1c concentration in the patient sample. Estimated Average Glucose 114 mg/dL [facility] Comment:eAG = Estimated ave rage glucose which is %A1C expressed asaverage glucose, using the formula of the T0U-HwdldbbGyapolr Glucose study (ADAG), Diabetes Care, Vol.31,#8,Apr. 2007 Blood Venous blood specimen / Unknown 12/19/2024 9:16 AM EDT 12/19/2024 11:25 AM EDT Alexa Appram TIN WHIZ MACHINE OPERATOR LAB BLOOD ORDERABLES Final Resu lt Performing Organization Address [facility]/ZIP Co de Phone Number [facility] [address] [place] [phone] * (ABNORMAL) Lipid Panel, Standard (12/19/2024 9:16 AM EDT) Triglycerides 92 <150 mg/dL [facility] Comment:Desirable Triglyceri de: less than 150 mg/dLBorderline High Triglyceride 150-199 mg/dLHigh Triglyceride: 200-499 mg/dLVery High Triglyceride: greater than or equal to 5OO mg/dL Cholesterol 123 <200 mg/dL [facility] Comment:Desirable Cholestero l: less than 200 mg/dLBorderline High Cholesterol: 200-239 mg/dLHigh Cholesterol: greater than 239 mg/dL LDL Cholesterol Calculated 73 <100 mg/dL [facility] Comment:Desirable LDL: less than 100 mg/dLNear Optimal/Above Optimal LDL: 110- 129 mg/dLBorderline High LDL: 130-159 mg/dLHigh LDL: 160-189 mg/dLVery High LDL: greater than or equal to 190 mg/dL HDL Cholesterol 32(L) >40 mg/dL [facility] Comment:Desirable HDL: great er than 40 mg/dL Note: This HDL assay may give artificially low results in patients with liver disease. Blood Venous blood specimen / Unknown 12/19/2024 9:16 AM EDT 12/19/2024 11:25 AM EDT Alexa Senior NP LAB BLOOD ORDERABLES Final Resu lt Performing Organization Address City/[facility]/ZIP Co de Phone Number [facility] [address] [place] [phone] * MR Abdomen w/ and w/o Contrast (12/17/2024 8:41 AM EDT) Anatomical Region Laterality Modality Abdomen Magnetic Resonan ce 12/17/2024 8:41 AM EDT Narrative 12/17/2024 10:46 AM EDT ? [facility] ?[address] ?[place] [address] ? Magnetic Resonance Report ? Signed ? Patient: Floran Villalta,Arun ?MR#: ?? [id number] ? : 1990 ?Acct:[id number] ? Age/Sex: 34 / M ?ADM Date: 12/17/24 ? Loc: HO.MRI ? Attending Dr: Alexa Senior ? Ordering Physician: Alexa Senior ?? Date of Service: 12/17/24 ?? Procedure(s): MR abdomen wo/w con ?? Accession Number(s): [id number] ? cc: Alexa Senior; Physician,Unknown ? EXAMINATION: [...] DD/ 0841 ? TD/TT: 12/17/24 0945 ? Glass Scullion: ? Procedure Note Massiel, Image - 12/17/2024 [place] [address] Magnetic Resonance Report Signed Patient: Alexx Lacy [facility]#: [id number] : 1990Acct:[id number] Age/Sex: 34 / MADM Date: 12/17/24 Loc: HO.MRI Attending Dr: Alexa Senior Ordering Physician: Alexa Senior Date of Service: 12/17/24 Procedure(s): MR abdomen wo/w con Accession Number(s): [id number] cc: Alexa Senior; Physician,Unknown EXAMINATION: MRI Abdomen [...] 12/17/24 1043 DD/ 0841 TD/TT: 12/17/24 0945 Glass Scullion: Alexa Senior NP [facility] MRI PROCEDURES Final Result * HIV 1/2 ANTIGEN/ANTIBODY,FOURTH GENERATION W/RFL (06/08/2021 11:00 AM EDT) HIV-1/2 ANTIGEN AND ANTIBODIES, 4TH GENERATION W/ REFLEX NON-REACT COLIN NON-REACT COLIN [facility] Comment: HIV-1 antigen and HIV-1/HIV-2 [...] ? For additional information please refer to http://education.Amor[employer]te/faq/YZB127 (This link is being provided for informational/ educational purposes only.) ? The performance of this assay has not been clinically validated in patients less than 2 years old. ?? 06/08/2021 11:0 0 AM EDT us Dee Lyons TIN WHIZ MACHINE OPERATOR LAB BLOOD ORDERABLES Final Res ult Performing Organization Address City/State/[facility] Co de Phone Number [facility] Anywhere [address] from Last 3 Months or Most Recently Relevant to Health Maintenance Insurance [facility] C3 Care Teams Knife Cutter Relationship Specialty Start Date End Date Alexa Senior NP [address] [place] [phone] PCP - General Family Medicine 10/26/23
== END 2025-01-28 11:53 | disposition home or self-care (01) ==
LOC: HO.HGS 11:35
PROVIDERS: PCP Nurse Practitioner; Visit Provider Surgery
DX: D17.1 Benign lipomatous neoplasm of skin and subcutaneous tissue of trunk (principal)
CPT/HCPCS: 99203

== ENCOUNTER → 2025-01-28 11:35 | Outpatient (BNVA) | payer MEDICAID, SELFPAY | PROVIDERS: PCP Nurse Practitioner; Visit Provider Surgery | DX: D17.1 Benign lipomatous neoplasm of skin and subcutaneous tissue of trunk (principal) | CPT/HCPCS: 99202 ==